=== PATIENT | male | born 1935 | race Caucasian/White ===

== ENCOUNTER → 2016-11-13 | Outpatient (CLI) | payer OTHER ==
[2016-11-13 08:43] LABS: Basophils # (auto) 0 uL; Basophils % (auto) 0.6 % (0.0-2.0); Eosinophils # (auto) 0.1 uL; Eosinophils % (auto) 1.6 % (0.0-7.0); Hematocrit 46.1 % (41.0-53.0); Hemoglobin 15.1 g/dL (13.5-17.5); Lymphocytes # (auto) 1.6 uL; Lymphocytes % (auto) 26.5 % (10.0-50.0); Mean Corpuscular Hgb Conc. 32.7 g/dL (32.0-36.0); Mean Corpuscular Volume 88.7 fL (80.0-100.0); Mean Platelet Volume 10.1 fL (7.4-10.4); Monocytes # (auto) 0.5 uL; Monocytes % (auto) 8.8 % (0.0-12.0); Neutrophils # (auto) 3.9 uL; Neutrophils % (auto) 62.5 % (37.0-80.0); Platelet Count (auto) 227 10^3/uL (140-450); Red Cell Distribution Width 14.6 % (11.6-16.0); White Blood Cell 6.2 10^3/uL (4.4-10.8)
[2016-11-13 08:53] LABS: Urine Bilirubin Negative (Negative); Urine Color Yellow (Yellow); Urine Glucose Normal (Normal); Urine Ketone Negative (Negative); Urine Mucus FEW (None Seen); Urine Nitrite Negative (Negative); Urine RBC 44 /hpf (0 - 3); Urine Squamous Epithelial Cell FEW /hpf (<5); Urine Urobilinogen Normal (Negative)
[2016-11-13 08:55] LABS: Urine Blood 2+ /uL (Negative)
[2016-11-13 09:22] LABS: Albumin 3.6 g/dL (3.4-5.0); BUN/Creatinine Ratio 32.5; Bilirubin, Total 1.1 mg/dL (0.2-1.0); Calcium 8.7 mg/dL (8.5-10.1); Potassium 3.5 mmol/L (3.5-5.1); Total Protein 6.7 g/dL (6.4-8.2)
== END | disposition home or self-care (01) ==
LOC: LAB 07:01
PROVIDERS: ATTEND Internal Medicine
DX: Z00.00 Encounter for general adult medical examination without abnormal findings (principal); E55.9 Vitamin D deficiency, unspecified
CPT/HCPCS: 36415; 80053; 80061; 81001; 82306; 85025; 85049

== ENCOUNTER → 2017-02-26 | Outpatient (CLI) | payer OTHER ==
[2017-02-26 14:54] LABS: Body Fluid Polymorphonuclear 17 %
== END | disposition home or self-care (01) ==
LOC: LAB 10:39
DX: M10.00 Idiopathic gout, unspecified site (principal)
CPT/HCPCS: 36415; 84550; 87070; 89051; 89060

== ENCOUNTER → 2017-04-09 | Outpatient (CLI) | payer OTHER ==
[2017-04-09 07:18] LABS: Basophils # (auto) 0 uL; Basophils % (auto) 0.6 % (0.0-2.0); CONDITION AutoValidated; Eosinophils # (auto) 0.1 uL; Eosinophils % (auto) 1.3 % (0.0-7.0); Hematocrit 42.7 % (41.0-53.0); Hemoglobin 14.3 g/dL (13.5-17.5); Lymphocytes % (auto) 28.4 % (10.0-50.0); Mean Corpuscular Hemoglobin 28.7 pg (28.0-32.0); Mean Corpuscular Hgb Conc. 33.4 g/dL (32.0-36.0); Mean Corpuscular Volume 85.9 fL (80.0-100.0); Mean Platelet Volume 8.8 fL (7.4-10.4); Monocytes # (auto) 0.7 uL; Monocytes % (auto) 9.5 % (0.0-12.0); Neutrophils # (auto) 4.3 uL; Neutrophils % (auto) 60.2 % (37.0-80.0); Platelet Count (auto) 264 10^3/uL (140-450); Red Cell Distribution Width 15.3 % (11.6-16.0); White Blood Cell 7.1 10^3/uL (4.4-10.8)
[2017-04-09 07:31] LABS: Albumin 3.3 g/dL (3.4-5.0); Calcium 8.5 mg/dL (8.5-10.1); Potassium 3.6 mmol/L (3.5-5.1)
[2017-04-09 07:33] LABS: BUN/Creatinine Ratio 30.9
[2017-04-09 07:36] LABS: Bilirubin, Total 0.6 mg/dL (0.2-1.0); Total Protein 6.6 g/dL (6.4-8.2)
== END | disposition home or self-care (01) ==
LOC: LAB 06:51
PROVIDERS: ATTEND Internal Medicine
DX: I10 Essential (primary) hypertension (principal)
CPT/HCPCS: 36415; 80053; 85025

== ENCOUNTER 2017-04-18 15:40 | Emergency (ER) | payer OTHER ==
[~2017-04-18] VITALS: Ht 167.6 cm; Wt 80.7 kg
[2017-04-18 16:38] LABS: Basophils # (auto) 0 uL; Basophils % (auto) 0.8 % (0.0-2.0); CONDITION Y; Eosinophils # (auto) 0.1 uL; Eosinophils % (auto) 1.4 % (0.0-7.0); Hematocrit 43.9 % (41.0-53.0); Hemoglobin 14.8 g/dL (13.5-17.5); Lymphocytes # (auto) 1.7 uL; Lymphocytes % (auto) 28.3 % (10.0-50.0); Mean Corpuscular Hgb Conc. 33.7 g/dL (32.0-36.0); Monocytes # (auto) 0.6 uL; Monocytes % (auto) 10.2 % (0.0-12.0); Neutrophils # (auto) 3.6 uL; Neutrophils % (auto) 59.3 % (37.0-80.0); Platelet Count (auto) 238 10^3/uL (140-450); White Blood Cell 6.1 10^3/uL (4.4-10.8)
[2017-04-18 16:45] LABS: Urine Bilirubin Negative (Negative); Urine Color Yellow (Yellow); Urine Glucose Normal (Normal); Urine Ketone Negative (Negative); Urine Mucus FEW (None Seen); Urine Nitrite Negative (Negative); Urine RBC 237 /hpf (0 - 3); Urine Squamous Epithelial Cell FEW /hpf (<5); Urine pH 6.5 (5.0-8.0)
[2017-04-18 16:48] LABS: Urine Blood 2+ /uL (Negative)
[2017-04-18 17:07] LABS: Albumin 3.5 g/dL (3.4-5.0); BUN/Creatinine Ratio 35.4; Bilirubin, Total 0.6 mg/dL (0.2-1.0); Calcium 9.1 mg/dL (8.5-10.1); Potassium 3.7 mmol/L (3.5-5.1); Total Protein 6.7 g/dL (6.4-8.2)
[2017-04-18] MEDS ORDERED: IOHEXOL 300 MG/ML 100ML BOTTLE IJ ONE (19:23)
[2017-04-19] MEDS ORDERED: MORPHINE SULFATE 4 MG/ML SYRG ONE (00:10)
[2017-04-19] MEDS ORDERED: ONDANSETRON HCL 4 MG/2 ML VIAL ONE (00:10)
[2017-04-19] MEDS ORDERED: LET TOPICAL SOLN 5 ML TOP ONE (00:13)
[2017-04-19] MEDS ORDERED: HYDROmorphone HCL 2 MG/ML VL ONE (00:38)
[2017-04-19] MEDS ORDERED: cefTRIAXone 1GM/50ML D5W 50 ML IV ONE (02:21)
[2017-04-19 06:08] VITALS: BP 142/102
== END 2017-04-19 06:16 | disposition home or self-care (01) ==
LOC: ER 15:44
DX: N20.0 Calculus of kidney (principal); N21.0 Calculus in bladder; K76.9 Liver disease, unspecified; I10 Essential (primary) hypertension; N40.0 Benign prostatic hyperplasia without lower urinary tract symptoms
CPT/HCPCS: 36415; 51702; 74176; 74177; 80053; 81001; 85025; 99285; J0696; J1170; J2270; J2405; J3490; Q9967

== ENCOUNTER 2017-04-24 03:43 | Emergency (ER) | payer OTHER ==
[~2017-04-24] VITALS: Ht 167.6 cm; Wt 79.4 kg
[2017-04-24 06:10] VITALS: BP 139/82
== END 2017-04-24 07:23 | disposition home or self-care (01) ==
LOC: ER 03:43 → EDBD 03:43 → ER 07:22
DX: T83.038A Leakage of other urinary catheter, initial encounter (principal); I10 Essential (primary) hypertension; Z87.442 Personal history of urinary calculi; Y82.8 Other medical devices associated with adverse incidents; Y92.89 Other specified places as the place of occurrence of the external cause

== ENCOUNTER 2017-04-24 13:20 | Emergency (ER) | payer OTHER ==
[~2017-04-24] VITALS: Ht 167.6 cm; Wt 79.4 kg
[2017-04-24 13:35] VITALS: BP 123/78
== END 2017-04-24 14:38 | disposition left against medical advice (07) ==
LOC: ER 13:31
DX: T83.038A Leakage of other urinary catheter, initial encounter (principal); Z53.21 Procedure and treatment not carried out due to patient leaving prior to being seen by health care provider; Y82.8 Other medical devices associated with adverse incidents; Y92.89 Other specified places as the place of occurrence of the external cause

== ENCOUNTER → 2017-05-24 | Outpatient (CLI) | payer OTHER ==
[~2017-05-24] VITALS: Ht 167.6 cm; Wt 79.0 kg
[~2017-05-24] MED LIST: ADENOSINE 66 MG in GIVE UN-DILUTED 0 ML IV ONE; ALBUTEROL SULF 2.5 MG/0.5ML(0.5%) NEB SOLN NEB ONE; ALBUTEROL SULF 2.5 MG/0.5ML(0.5%) NEB SOLN ONE; AMINOPHYLLINE 250 MG/10 ML VL IV ONE
== END | disposition home or self-care (01) ==
LOC: XY 08:09
PROVIDERS: ATTEND Internal Medicine Cardiovascular Disease
DX: Z01.810 Encounter for preprocedural cardiovascular examination (principal)
CPT/HCPCS: 78452; 93017; 93306; 94640; A9500; J0153; J0280

== ENCOUNTER → 2017-07-10 | Day surgery (SDC) | payer OTHER ==
[2017-07-09 13:22] LABS: Basophils # (auto) 0.1 uL; Basophils % (auto) 0.9 % (0.0-2.0); CONDITION Y; Eosinophils # (auto) 0.2 uL; Eosinophils % (auto) 2.9 % (0.0-7.0); Hematocrit 41.8 % (41.0-53.0); Hemoglobin 14.4 g/dL (13.5-17.5); Lymphocytes # (auto) 1.7 uL; Lymphocytes % (auto) 22.7 % (10.0-50.0); Mean Corpuscular Hemoglobin 29.9 pg (28.0-32.0); Mean Corpuscular Hgb Conc. 34.5 g/dL (32.0-36.0); Mean Corpuscular Volume 86.8 fL (80.0-100.0); Mean Platelet Volume 7.2 fL (6.9-10.8); Monocytes # (auto) 0.8 uL; Neutrophils # (auto) 4.6 uL; Neutrophils % (auto) 62.5 % (37.0-80.0); Platelet Count (auto) 332 10^3/uL (140-450); Red Cell Distribution Width 15.8 % (11.8-14.3); White Blood Cell 7.4 10^3/uL (4.4-10.8)
[2017-07-09 13:35] LABS: INR 1.02 (0.9-1.15); Partial Thromboplastin Time 26.3 sec (22.64-33.71); Prothrombin Time 11.1 sec (9.37-12.3)
[2017-07-09 14:07] LABS: Albumin 3.4 g/dL (3.4-5.0); BUN/Creatinine Ratio 32.6; Bilirubin, Total 1.2 mg/dL (0.2-1.0); Calcium 8.9 mg/dL (8.5-10.1); Potassium 3.2 mmol/L (3.5-5.1)
[~2017-07-10] VITALS: Ht 30.5 cm; Wt 0.5 kg
[~2017-07-10] MED LIST changes: -ADENOSINE 66 MG in GIVE UN-DILUTED 0 ML IV ONE; -ALBUTEROL SULF 2.5 MG/0.5ML(0.5%) NEB SOLN NEB ONE; -ALBUTEROL SULF 2.5 MG/0.5ML(0.5%) NEB SOLN ONE; -AMINOPHYLLINE 250 MG/10 ML VL IV ONE; +AMLO5TAB2 PO; +CHOL20007 PO; +FINA5TAB4 PO; +HCTZ25T PO; +HYDR-4663 PO; +HYDROmorphone HCL 2 MG/ML VL IV PRN; +LISI-646 PO; +LOVA20TA4 PO; +METO25TA5 PO; +ONDANSETRON HCL 4 MG/2 ML VIAL IV ONE; +PROPOFOL 10 MG/ML 20 ML IV ONE; +ROCURONIUM 10MG/ML 10ML VIAL IV ONE; +TERA10CA36 PO; +ceFAZolin 1GM/50ML D5W 50 ML IV ONE; +ePHEDrine SULFATE 50 MG/ML AMP IV PRN; +fentaNYL CITRATE 100 MCG/2 ML VL ONE; +hydrALAZINE HCL 20 MG/ML VL IV PRN
[2017-07-10 14:20] VITALS: BP 142/84
== END | disposition home or self-care (01) ==
LOC: SUR 07:20
PROVIDERS: ATTEND Urology
DX: N21.0 Calculus in bladder (principal); N20.0 Calculus of kidney; I10 Essential (primary) hypertension; E78.5 Hyperlipidemia, unspecified; E78.00 Pure hypercholesterolemia, unspecified; M81.0 Age-related osteoporosis without current pathological fracture
CPT/HCPCS: 36415; 51700; 80053; 85025; 85610; 85730; J0690; J2704; J3010

== ENCOUNTER → 2017-07-17 | Outpatient (CLI) | payer OTHER ==
[~2017-07-17] VITALS: Ht 167.6 cm; Wt 77.1 kg
[~2017-07-17] MED LIST changes: -HYDROmorphone HCL 2 MG/ML VL IV PRN; -ONDANSETRON HCL 4 MG/2 ML VIAL IV ONE; -PROPOFOL 10 MG/ML 20 ML IV ONE; -ROCURONIUM 10MG/ML 10ML VIAL IV ONE; -ceFAZolin 1GM/50ML D5W 50 ML IV ONE; -ePHEDrine SULFATE 50 MG/ML AMP IV PRN; -fentaNYL CITRATE 100 MCG/2 ML VL ONE; -hydrALAZINE HCL 20 MG/ML VL IV PRN
[2017-07-17 09:26] LABS: Albumin 3.2 g/dL (3.4-5.0); BUN/Creatinine Ratio 20.2; Calcium 8.7 mg/dL (8.5-10.1); Potassium 3.1 mmol/L (3.5-5.1); Total Protein 6.6 g/dL (6.4-8.2)
[2017-07-17 09:33] LABS: Basophils # (auto) 0.1 uL; Basophils % (auto) 0.9 % (0.0-2.0); Eosinophils # (auto) 0.1 uL; Hematocrit 41.1 % (41.0-53.0); Lymphocytes # (auto) 1.7 uL; Lymphocytes % (auto) 27.1 % (10.0-50.0); Mean Corpuscular Hemoglobin 29.4 pg (28.0-32.0); Mean Corpuscular Hgb Conc. 33.9 g/dL (32.0-36.0); Mean Corpuscular Volume 86.8 fL (80.0-100.0); Mean Platelet Volume 7.4 fL (6.9-10.8); Monocytes # (auto) 0.7 uL; Monocytes % (auto) 11.5 % (0.0-12.0); Neutrophils # (auto) 3.7 uL; Neutrophils % (auto) 58.5 % (37.0-80.0); Nucleated Red Blood Cells % 0.1 %; Platelet Count (auto) 272 10^3/uL (140-450); Red Cell Distribution Width 15.7 % (11.8-14.3); White Blood Cell 6.4 10^3/uL (4.4-10.8)
[2017-07-17 09:46] LABS: INR 1.02 (0.9-1.15); Partial Thromboplastin Time 26.4 sec (22.64-33.71); Prothrombin Time 11.1 sec (9.37-12.3)
== END ==
LOC: LAB 08:00 → EDSTATUS 07-20 07:45
PROVIDERS: ATTEND Urology
DX: T65.91XA Toxic effect of unspecified substance, accidental (unintentional), initial encounter (principal); N39.0 Urinary tract infection, site not specified; N21.0 Calculus in bladder; M16.10 Unilateral primary osteoarthritis, unspecified hip; I10 Essential (primary) hypertension; I25.10 Atherosclerotic heart disease of native coronary artery without angina pectoris; N40.0 Benign prostatic hyperplasia without lower urinary tract symptoms; F32.9 Major depressive disorder, single episode, unspecified
CPT/HCPCS: 36415; 80053; 85025; 85610; 85730